=== PATIENT | male | born 1965 | race Caucasian/White ===

== ENCOUNTER 2018-11-01 10:45 | Inpatient (IN) ==
--- NOTE | 2018-11-01 09:55 | Cardiology Consultation ---
Date of Consultation November 01, 2018 Assessment & Plan (1) Abnormal stress echo: Patient with symptoms of increasing angina pectoris though with atypical features right-sided chest and arm. Stress testing today significant for stress-induced ischemia possible two-vessel or greater at moderately low level workload's. Plan proceed with diagnostic cardiac catheterization after initial laboratory testing. Procedure and risk will be explained to the patient informed consent obtained. Further recommendations pending the results of testing (2) Atypical angina: (3) Hyperlipidemia: Will warrant lipid-lowering therapy after above History of Present Illness Reason for Consultation: Exertional angina, abnormal stress test Requesting Physician: Dr. Henriquez Attending Physician: Refugio Henriquez, DO History of Present Illness Patient is a 53-year-old male without prior documented cardiac disease with cardiac risk factors of family history of heart disease hyperlipidemia and chronic tobacco use is been experiencing symptoms of right-sided chest pain and right arm pain for approximately 6 months. Symptoms have however recently become more symptomatic especially with exertion and patient was referred today for exercise treadmill with echocardiographic imaging. With study patient exercised for 6 minutes on a Abdirashid protocol with developing symptoms of chest pressure and tightness at peak workload. Moderate dyspnea was exact extubated. EKG response was abnormal with 2 to [address] depression in inferolateral leads. Echocardiogram at rest on preliminary review revealed very subtle hypokinesis inferior base with preserved LV systolic function with stress to her stress-induced wall motion abnormalities involving the inferior posterior and apical wall segments. In light of findings patient's referred for diagnostic cardiac catheterization. He denies history rheumatic fever scarlet fever renal or hepatic disease. Notes no prior history of angina congestive heart failure TIA or stroke. Appetite and weight have been stable. Smokes 1/2 pack of cigarettes per day. No bleeding issues dark black stools blood in the stools. Allergies Allergy/AdvReac Type Severity Reaction Status Date / Time No Known Allergies Allergy Unverified 10/29/17 16:20 Home Medications Home Medications Medication Instructions Recorded Confirmed Type CHOLECALCIFEROL (VITAMIN D3) 1,000 unit PO DAILY 90 Days #0 tab 10/29/17 History Patient History Surgical History History of inguinal herniorrhaphy Family History Father Coronary heart disease Social History Smoking Status: Current every day smoker Tobacco Type: cigarettes packs per day: 0.5 Hx Alcohol Use: Yes (Occasional) Review of Systems Review of Systems: All systems reviewed & are unremarkable except as noted in HPI & below Physical Exam Constitutional: Thin in no acute distress Eyes: PERRL, conjunctivae normal, anicteric sclerae ENMT: external ear and nose normal, oropharynx normal Mouth: + dentition abnormality (Poor dentition) Neck: trachea midline, no thyromegaly Respiratory: normal respiratory effort, lungs clear to auscultation Cardiovascular: Rate/Rhythm: regular rate and regular rhythm Heart Sounds: normal S1 and normal S2; no gallop and no murmur Palpation: normal PMI Vessels: normal carotid upstroke and radial pulses present; no JVD and no carotid bruit Extremities: no edema Gastrointestinal (Abdomen): normal bowel sounds, soft, nontender, no hepatosplenomegaly Musculoskeletal: no cyanosis or clubbing, extremities motor strength 5/5 Skin: no rashes, warm and dry Neurologic: PERRL, EOMI, accommodation nl, no face palsy, no dysarthria Psychiatric: A+Ox3, euthymic affect
[2018-11-01 10:35] LABS: Hematocrit (blood only) 47.5 % (42-52); Hemoglobin 16.7 g/dL (14.0-18.0); Mean Corpuscular Hgb Conc 35.2 g/dL (32-36); Mean Corpuscular Volume 90.1 fL (80-100); Mean Platelet Volume 9.2 fL (7.4-10.4); Platelet Count 256 K/uL (130-400); RDW Coefficient of Variation 12.8 % (11.5-14.5); RDW Standard Deviation 42.1 fL (36.4-46.3); Red Blood Count 5.27 M/uL (4.7-6.1)
[~2018-11-01 10:45] MED LIST: SODIUM CHLORIDE 0.9% 1000ML 1,000 ML IV SCH
[2018-11-01 10:47] LABS: Partial Thromboplastin Ratio 1.1; Partial Thromboplastin Time 30.6 Seconds (21.0-31.0); Prothrombin Time 10.2 Seconds (9.0-12.0)
[2018-11-01 10:56] LABS: BUN Creatinine Ratio 9.2 (10-20); Calcium 9.6 mg/dl (8.5-10.1); Creatinine Clr Calc Pharmacy 78.1 ml/min; Est GFR (Non-African American) 85.4; Potassium 4.2 mmol/L (3.5-5.1)
[2018-11-01] MEDS ORDERED: ASPIRIN 81 MG CHEW ONE (11:48)
[2018-11-01] MEDS ORDERED: HEPARIN (PORCINE) 1000 UNIT/ML 10 ML (CATH LAB USE ONLY) ONE (12:09)
[2018-11-01] MEDS ORDERED: fentaNYL citrate 100 MCG/2 ML VIAL ONE ×2 (12:09→14:22)
[2018-11-01] MEDS ORDERED: NITROGLYCERIN/D5W 100MCG/ML 20ML SYR ONE (12:09)
[2018-11-01] MEDS ORDERED: NiCARDipine HCL INJ 2.5 MG/ML 10 ML AMP ONE (12:09)
[2018-11-01] MEDS ORDERED: MIDAZOLAM HCL 1 MG/ML 2ML VIAL ONE ×2 (12:09→14:22)
--- NOTE | 2018-11-01 13:18 | Pre Anesthesia Assessment ---
Date of Service November 01, 2018 Pre Sedation Assessment Vital Signs Temp Pulse Pulse Pulse Resp BP Pulse Ox 11/02/18 08:10 56 L 11/02/18 07:06 36.8 C 56 L 17 131/81 99 11/02/18 04:00 36.5 C 56 L 17 109/70 98 11/01/18 23:52 36.6 C 53 L 17 122/76 99 11/01/18 22:20 63 11/01/18 19:06 36.4 C L 61 16 115/72 98 11/01/18 18:29 61 118/78 11/01/18 17:44 60 120/80 11/01/18 17:29 64 132/87 11/01/18 16:59 36.5 C 56 L 19 153/84 H 98 11/01/18 16:29 36.6 C 54 L 20 137/87 99 11/01/18 16:14 36.6 C 70 19 128/81 99 11/01/18 11:00 36.3 C L 66 16 104/52 L 98 Cardiovascular RRR, no murmur, no edema Respiratory normal respiratory effort, lungs clear to auscultation Pre-Sedation Airway Assessment Smoking Status: Current every day smoker ASA: ASA4 Notes The planned sedation has been discussed with the patient. Informed Consent was obtained. I have identified the patient, determined the appropriateness of sedation and have assessed the patient immediately prior to the procedure. All medicine(s) and interventions are by my order.
--- NOTE | 2018-11-01 14:27 | Post Anesthesia Assessment ---
Date of Service November 01, 2018 Post Sedation Assessment Vital Signs Temp Pulse Pulse Pulse Resp BP Pulse Ox 11/02/18 08:10 56 L 11/02/18 07:06 36.8 C 56 L 17 131/81 99 11/02/18 04:00 36.5 C 56 L 17 109/70 98 11/01/18 23:52 36.6 C 53 L 17 122/76 99 11/01/18 22:20 63 11/01/18 19:06 36.4 C L 61 16 115/72 98 11/01/18 18:29 61 118/78 11/01/18 17:44 60 120/80 11/01/18 17:29 64 132/87 11/01/18 16:59 36.5 C 56 L 19 153/84 H 98 11/01/18 16:29 36.6 C 54 L 20 137/87 99 11/01/18 16:14 36.6 C 70 19 128/81 99 11/01/18 11:00 36.3 C L 66 16 104/52 L 98 Recovery Score Activity: Moves 4 extremities Respiration: Deep Breath/Cough Circulation: +/-20% PreAnes Value Consciousness: Fully Awake Oxygen Saturation: > 92% On Room Air Post Sedation Plan On clinical assessment, the patient appears to have tolerated the sedation without complications. Patient is recovering as anticipated. Patient will continue to be monitored by nursing and may be discharged when sedation discharge criteria are met per below protocol. Upon Completions of procedure and additional 15 minutes continue every 5 minute vital signs and the P.A.R. score; then discharge to a Phase I or Fast Track to Phase II per the following guidelines: * Discharge Patient to appropriate Phase II area if PAR is 8 or greater or return to pre- procedure baseline. The post - procedure orders will be as directed. * If PAR score is less than 8 or not return to pre-procedure baseline then patient will follow Phase I monitoring till PAR is reached for Phase II. The Phase I may be done in procedure room or may call to secure a Phase I area. * If naloxone or flumazenil are used for reversal, hold in Phase I for continued monitoring from when last reversal dose was given for a minimum of 60 minutes or longer pending the nurse and/or physician discretion of patient condition before discharge to Phase II. Please call the Sedation Physician to re-evaluate and complete post-note for discharge to Phase II area. Do NOT discharge from procedure sedation or Phase 1 until post- sedation evaluation note is complete by procedure /sedation MD Sedation Discharge Instructions to be given to the patient at discharge to home.
--- NOTE | 2018-11-01 14:29 | Cardiac Catheterization ---
Cardiac Cath Procedure Full Procedure Date November 01, 2018 Pre-Procedure Diagnosis Pre-Procedure Diagnosis: Angina and Positive Stress Test AUC Score AUC Score: 8 Post-Procedure Diagnosis Post-Procedure Diagnosis: Severe CAD Procedure(s) Performed Procedure(s) Performed: Coronary Angiography and Left Heart Cath Gelatin Powder Mixer Jose J Hernandez DO Rn Documentation(s) Vianca RTR Estimated Blood Loss Estimated Blood Loss: 5cc Medication(s) Medication(s): Fentanyl, Heparin, Lidocaine 1%, Nicardipine, Nitroglycerin and Versed Summary of Findings 100% ostial LAD 85% distal RCA Hemodynamics Rest Ao:: 107/63/83 Final Ao: 128/68/97 LV: 109/3/7 Recommendations Recommendations: PCI without planned CABG (Case discussed with CT surgeon, Dr. Stewart who recommends PCI of the RCA due to small caliber of the LAD which she does not believe would be an adequate surgical target.) Specimens Specimens: None Radiation Exposure (mGy) 1026 Contrast (mls) 65 Fluids (cc crystalloids) Fluids (cc crystalloids): 84cc Anesthesia Moderate sedation. Start 1319. End 1348. Sedation monitor: Marky SALCIDO Procedural Complication(s) None Disposition Patient remained in Accounts Payable Accountant for PCI of RCA. ACC Data: Accounts Payable Accountant Cardiac Status Clinical evaluation leading to the procedure CAD Presenation: Positive Stress Test and Unstable angina Anginal Classification: CCS II Heart Failure: No Coronary Anatomy Dominant: Right Left Main (% Stenosis): Ostial (Small left main coronary artery (same diameter as Lcx) giving rise to the left circumflex. 30% ostial taper.) and Distal (Moderate calcification, 30%) LAD (% Stenosis): Ostial (100%) and Distal (Apical segments fill via right to left collaterals.) OM1 (% Stenosis): Ostial (10%) OM2 (% Stenosis): Proximal (Mild luminal irregularities, 10%) RCA (% Stenosis): Proximal (50%), Mid (Diffusely diseased mid segment with stenosis range 20 to 50%.) and Distal (84%) R PDA (% Stenosis): Ostial (30%^) R PL1 (% Stenosis): Proximal (20%, competitive flow noted via left to right collaterals) AM (% Stenosis): Ostial (50%) and Proximal (60%) Diagnostic Physicians Name: Jose J Hernandez DO Status: Urgent Closure Device Percutaneous Entry Location: Radial Closure Device: Radial Band Recommendations: PCI without planned CABG (Case discussed with CT surgeon, Dr. Stewart who recommends PCI of the RCA due to small caliber of the LAD which she does not believe would be an adequate surgical target.) Intraprocedure Events Significant Disection: No Perforation: No
[2018-11-01] MEDS ORDERED: CLOPIDOGREL BISULFATE 300 MG TAB ONE (15:25)
--- NOTE | 2018-11-01 15:34 | Post Anesthesia Assessment ---
Date of Service November 01, 2018 Post Sedation Assessment Vital Signs Temp Pulse Resp BP Pulse Ox 11/01/18 11:00 36.3 C L 66 16 104/52 L 98 Recovery Score Activity: Moves 4 extremities Respiration: Deep Breath/Cough Circulation: +/-20% PreAnes Value Consciousness: Fully Awake Oxygen Saturation: > 92% On Room Air Discharge Sedation Level of Care: Fast Track Phase II Post Sedation Plan On clinical assessment, the patient appears to have tolerated the sedation without complications. Patient is recovering as anticipated. Patient will continue to be monitored by nursing and may be discharged when sedation discharge criteria are met per below protocol. Upon Completions of procedure and additional 15 minutes continue every 5 minute vital signs and the P.A.R. score; then discharge to a Phase [facility] or [facility] per the following guidelines: * Discharge Patient to appropriate Phase II area if PAR is 8 or greater or return to pre- procedure baseline. The post - procedure orders will be as directed. * If PAR score is less than 8 or not return to pre-procedure baseline then patient will follow Phase I monitoring till PAR is reached for Phase II. The Phase I may be done in procedure room or may call to secure a Phase I area. * If naloxone or flumazenil are used for reversal, hold in Phase I for continued monitoring from when last reversal dose was given for a minimum of 60 minutes or longer pending the nurse and/or physician discretion of patient condition before discharge to Phase II. Please call the Sedation Physician to re-evaluate and complete post-note for discharge to Phase II area. Do NOT discharge from procedure sedation or Phase 1 until post- sedation evaluation note is complete by procedure /sedation MD Sedation Discharge Instructions to be given to the patient at discharge to home.
[2018-11-01] MEDS ORDERED: ACETAMINOPHEN 325 MG TAB PO PRN (15:44)
--- NOTE | 2018-11-01 15:44 | Cardiac Catheterization ---
Cardiac Cath Procedure Full Procedure Date November 01, 2018 Pre-Procedure Diagnosis Pre-Procedure Diagnosis: Angina and Positive Stress Test AUC Score AUC Score: 8 Post-Procedure Diagnosis Post-Procedure Diagnosis: Severe CAD and Successful PCI Procedure(s) Performed Procedure(s) Performed: Coronary Angiography and Drug Eluting Stent Environmental Emergencies Planner Isauro Negrete MD Lcpc(s) Vianca RTR Estimated Blood Loss Estimated Blood Loss: 5cc Medication(s) Medication(s): Clopidogrel, Fentanyl, Heparin, Nicardipine, Nitroglycerin and Versed Summary of Findings Indication: High risk stress test Access: 6 Fr right radial artery Catheters: AR-1 guide Findings: For full details of patient's coronary angiography please cath report dictated by Dr. Hernandez. Briefly, patient found to have severe multi-vessel disease including an occluded ostial LAD which filled via right to left collaterals and RCA with diffuse moderate to severe mid segment disease and an 80 to 90% focal distal lesion. After Dr. Hernandez discussed case with [facility] cardiac surgery decision to proceed with PCI to RCA. -- PCI -- Antithrombotic therapy: Heparin, clopidogrel Procedure: RCA cannulated with AR-1 guide Iuss Acoustic Analyst 50 wire passed across lesion into distal vessel Distal RCA lesion predilated with 2.5 compliant balloon Dilated lesion stented with 2.5 x 30 mm Ishmael drug-eluting stent Stent post-dilated with 2.75 noncompliant balloon Mid RCA stented with 3.0 x 30 mm Ishmael drug-eluting stent Stent postdilated with 3.25 NC balloon IC vasodilators administered for spasm Post procedure LISE 3 flow, stents well expanded with minimal residual stenosis and no apparent cardiac complications. Good collaterals to LAD. Competitive flow no longer seen in right PLB. Arterial Closure: TR band Summary: 1. Successful PCI of distal RCA with single drug-eluting stent (2.5 x 30 mm Viking; postdilated with 2.75 NC). 2. Successful PCI of mid RCA with single drug-eluting stent (3.0 x 30 mm Viking; postdilated with 3.25 NC). Recommendations: To PCU for continued monitoring Loaded with clopidogrel 600 mg in slab depiler operator Continue dual-antiplatelet therapy for at least 6 months Continue statin, and ASCVD risk factor modification Consult cardiac Rehab Hemodynamics Rest Ao:: 123/65/89 Final Ao: 133/71/95 LV: -- Recommendations Recommendations: PCI without planned CABG Specimens Specimens: None Radiation Exposure (mGy) 3190 Contrast (mls) 165 Fluids (cc crystalloids) Fluids (cc crystalloids): 165 Drains Drains: none Anesthesia moderate Procedural Complication(s) None Disposition PCU ACC Data: Showroom Consultant Cardiac Status Clinical evaluation leading to the procedure CAD Presenation: Positive Stress Test Anginal Classification: CCS III Heart Failure: No Cardiogenic Shock within 24 Hours: No Cardiac Arrest within 24 Hours: No Imaging Studies Past 6 Months: Yes Stress Studies Past 6 Months: Yes Stress Echocardiogram: Yes - Positive and Risk/Extent of Ischemia (High) Diagnostic Physicians Name: Isauro Negrete MD Closure Device Percutaneous Entry Location: Radial Closure Device: Radial Band Recommendations: PCI without planned CABG PCI Indication: + Stress Test Lesion Segment Name: RCA Culprit Artery: Yes Stenosis Prior to Rx (%): 90 Chronic Total Occlusion: No IVUS: No FFR: No Pre-Procedure LISE Flow: 2 Previously Treated Lesion: No Lesion Complexity: Non-High/Non-C Lesion Length (mm): 30 Thrombus Present: No Bifurcation Lesion: No Guidewire Across Lesion: Stenosis Post-Procedure (%): 0 Post-Procedure LISE Flow: 3 Devices(s) Deployed: Yes Yes Intraprocedure Events Significant Disection: No Perforation: No
[2018-11-01] MEDS ORDERED: SODIUM CHLORIDE 0.9% 1000ML 1,000 ML IV SCH (16:30)
[2018-11-02 07:03] LABS: Basophils # (auto) 0.06 K/uL (0-0.2); Basophils % (auto) 0.8 %; Eosinophils % (auto) 2.7 %; Hematocrit (blood only) 41.5 % (42-52); Hemoglobin 14.4 g/dL (14.0-18.0); Immature Granulocytes # (auto) 0.01 K/uL (0.00-0.02); Immature Granulocytes % (auto) 0.1 %; Lymphocytes # (auto) 2.36 K/uL (1.2-3.4); Lymphocytes % (auto) 31.7 %; Mean Corpuscular Hgb Conc 34.7 g/dL (32-36); Mean Corpuscular Volume 88.5 fL (80-100); Mean Platelet Volume 9.3 fL (7.4-10.4); Monocytes # (auto) 0.71 K/uL (0.11-0.59); Monocytes % (auto) 9.5 %; Neutrophils # (auto) 4.11 K/uL (1.4-6.5); Neutrophils % (auto) 55.2 %; Platelet Count 223 K/uL (130-400); RDW Coefficient of Variation 12.9 % (11.5-14.5); RDW Standard Deviation 41.3 fL (36.4-46.3); Red Blood Count 4.69 M/uL (4.7-6.1); White Blood Count 7.45 K/uL (4.8-10.8)
[2018-11-02 07:32] LABS: BUN Creatinine Ratio 10.4 (10-20); Calcium 8.7 mg/dl (8.5-10.1); Creatinine Clr Calc Pharmacy 98.8 ml/min; Est GFR (African American) 117.8; Est GFR (Non-African American) 101.6; Potassium 3.7 mmol/L (3.5-5.1)
[2018-11-02] MEDS ORDERED: CLOPIDOGREL BISULFATE 75 MG TAB PO SCH (09:00)
[2018-11-02] MEDS ORDERED: ASPIRIN 81 MG ECTAB PO SCH (09:00)
[2018-11-02] MEDS ORDERED: ATORVASTATIN 40 MG TAB PO SCH (09:00)
[2018-11-02] MEDS ORDERED: NITROGLYCERIN SL 0.4 MG/TAB TAB SL PRN (10:15)
--- NOTE | 2018-11-02 10:23 | Cardiology Progress Note ---
Date of Service November 02, 2018 Assessment & Plan (1) Abnormal stress echo: (2) CAD (coronary artery disease), [place] coronary artery: (3) S/P right coronary artery (RCA) stent placement: (4) Tobacco abuse: (5) Hyperlipidemia: Cardiac catheterization performed 11/01/2018 demonstrated multivessel coronary disease with severe distal RCA stenosis, and chronic total occlusion of proximal LAD. Left main caliber small however same diameter as circumflex artery. Case discussed with cardiothoracic surgery as well as interventional cardiology. Decision was made to proceed with percutaneous intervention of the right coronary artery which gives rise to right to left collaterals. Smoking cessation advised. Continue dual antiplatelet therapy for minimum of 6 months post percutaneous intervention. Beta-torsten and high intensity statin therapy added during hospitalization. Patient provided with prescription for sublingual nitroglycerin and instructed regarding appropriate use. Instructed to avoid strenuous activity. Lifting restriction of less than 50 pounds until cardiology follow-up. Outpatient cardiology follow-up in 2 weeks. Subjective Patient seen and examined at the bedside. is present. Patient denies chest pain or shortness of breath. No orthopnea, PND, or lower extremity edema. No wrist ecchymosis or hematoma. Patient has questions regarding work restrictions. 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 Drives up to 250 miles per day. Unfortunately, patient's father 2 days ago. He is anxious for discharge to attend his father's services. Patient offers no other concerns/complaints at this time. Review of Systems Review of Systems: All systems reviewed & are unremarkable except as noted in HPI & below Physical Exam Physical Exam: General: NAD, AAO x3, well nourished. Appears older than stated age. HEENT: Normocephalic. Atraumatic. Conjunctiva pink, no scleral icterus. Neck: No carotid bruits, the carotid upstrokes are brisk. No JVD. No HJR Heart: Regular normal S-1 and S-2 no S-3 or S-4 gallop. No murmurs or rub appreciated. PMI is not displaced. No RV heave. Lungs: Clear bilateral without rales , rhonchi, or wheeze. Abdomen: Normal bowel sounds. Soft. Nontender. No masses or organomegaly. No abdominal bruits. Extremities: No clubbing, cyanosis, or edema. Pulses: radial=2/4, Dorsalis pedis =2/4, posterior tibial=2/4. Neuro: Cranial nerves grossly intact. No focal motor deficit. Results & Data Vital Signs (Past 12 Hours) Vital Signs Temp Pulse Pulse Resp BP Pulse Ox 11/02/18 08:10 56 L 11/02/18 07:06 36.8 C 56 L 17 131/81 99 11/02/18 04:00 36.5 C 56 L 17 109/70 98 11/01/18 23:52 36.6 C 53 L 17 122/76 99 11/01/18 22:20 63 Laboratory Results Laboratory Results - last 24 hr 11/01/18 11/01/18 11/01/18 10:20 10:20 10:20 WBC 6.10 RBC 5.27 Hgb 16.7 Hct 47.5 MCV 90.1 MCH 31.7 MCHC 35.2 RDW Std Deviation 42.1 RDW Coeff of Anika 12.8 Plt Count 256 MPV 9.2 Immature Gran % (Auto) Neut % (Auto) Lymph % (Auto) Russell % (Auto) Eos % (Auto) Baso % (Auto) Immature Gran # (Auto) Neut # (Auto) Lymph # (Auto) Russell # (Auto) Eos # (Auto) Baso # (Auto) PT 10.2 INR 1.0 APTT 30.6 PTT Ratio 1.1 Activ Coag Time Kaolin Sodium 142 Potassium 4.2 Chloride 108 H Carbon Dioxide 28 Anion Gap 6.0 BUN 9 Creatinine 0.99 Est Cr Clr Drug Dosing 78.1 Est GFR ( Amer) 99.0 Est GFR (Non-Af Amer) 85.4 BUN/Creatinine Ratio 9.2 L Glucose 96 Calcium 9.6 Hepatitis C Ab Screen 11/01/18 11/01/18 11/01/18 10:20 14:39 14:59 WBC RBC Hgb Hct MCV MCH MCHC RDW Std Deviation RDW Coeff of Anika Plt Count MPV Immature Gran % (Auto) Neut % (Auto) Lymph % (Auto) Russell % (Auto) Eos % (Auto) Baso % (Auto) Immature Gran # (Auto) Neut # (Auto) Lymph # (Auto) Russell # (Auto) Eos # (Auto) Baso # (Auto) PT INR APTT PTT Ratio Activ Coag Time Kaolin 230 H 323 H Sodium Potassium Chloride Carbon Dioxide Anion Gap BUN Creatinine Est Cr Clr Drug Dosing Est GFR ( Amer) Est GFR (Non-Af Amer) BUN/Creatinine Ratio Glucose Calcium Hepatitis C Ab Screen Neg 11/02/18 11/02/18 06:14 06:14 WBC 7.45 RBC 4.69 L Hgb 14.4 Hct 41.5 L MCV 88.5 MCH 30.7 MCHC 34.7 RDW Std Deviation 41.3 RDW Coeff of Anika 12.9 Plt Count 223 MPV 9.3 Immature Gran % (Auto) 0.1 Neut % (Auto) 55.2 Lymph % (Auto) 31.7 Russell % (Auto) 9.5 Eos % (Auto) 2.7 Baso % (Auto) 0.8 Immature Gran # (Auto) 0.01 Neut # (Auto) 4.11 Lymph # (Auto) 2.36 Russell # (Auto) 0.71 H Eos # (Auto) 0.20 Baso # (Auto) 0.06 PT INR APTT PTT Ratio Activ Coag Time Kaolin Sodium 139 Potassium 3.7 Chloride 108 H Carbon Dioxide 26 Anion Gap 5.0 BUN 8 Creatinine 0.78 Est Cr Clr Drug Dosing 98.8 Est GFR ( Amer) 117.8 Est GFR (Non-Af Amer) 101.6 BUN/Creatinine Ratio 10.4 Glucose 93 Calcium 8.7 Hepatitis C Ab Screen (1) Hyperlipidemia Hyperlipidemia type: other hyperlipidemia Qualified Code(s): E78.49 - Other hyperlipidemia; E78.4 - Other hyperlipidemia (2) CAD (coronary artery disease), [place] coronary artery Associated angina: with stable angina [place] vs. transplanted heart: [place] heart Qualified Code(s): I25.118 - Atherosclerotic heart disease of [place] coronary artery with other forms of angina pectoris
[2018-11-02] MEDS ORDERED: METOPROLOL SUCC 25MG EXT REL TAB PO SCH (10:30)
--- NOTE | 2018-11-02 10:55 | Discharge Summary ---
Date of Service November 02, 2018 Admission HPI Per Admitting Provider Patient underwent elective outpatient exercise stress echocardiography 11/01/2018. Anginal symptoms develop at low level of exercise with ischemic ECG changes and exercise-induced regional wall motion abnormalities on ec hocardiogram suggestive of ischemia. Patient admitted under observation status for cardiac catheterization. Admission Exam Per Admitting Provider General: NAD, AAO x3, well nourished. HEENT: Normocephalic. Atraumatic. Conjunctiva pink, no scleral icterus. Neck: No carotid bruits, the carotid upstrokes are brisk. No JVD. No HJR Heart: Regular normal S-1 and S-2 no S-3 or S-4 gallop. No murmurs or rub appreciated. PMI is not displaced. No RV heave. Lungs: Clear bilateral without rales , rhonchi, or wheeze. Abdomen: Normal bowel sounds. Soft. Nontender. No masses or organomegaly. No abdominal bruits. Extremities: No clubbing, cyanosis, or edema. Pulses: radial=2/4, Dorsalis pedis =2/4, posterior tibial=2/4. Neuro: Cranial nerves grossly intact. No focal motor deficit. Principal Diagnosis Multivessel coronary artery disease status post percutaneous intervention with drug-eluting stent implantation x2 to the right coronary artery. Discharge Data Allergies Allergy/AdvReac Type Severity Reaction Status Date / Time No Known Allergies Allergy Unverified 10/29/17 16:20 Consultations 11/01/18 15:46 Consult Cardiac Rehabilitation Routine Procedures Performed Operation Date: 11/01/18 11:00 <No data on this case meets the specified criteria> Operation Date: 11/01/18 11:00 Actual Procedures p Cath, Left with Cors and Vent(Left) - Jose J Hernandez DO s Cineradiography w/Routine Exam(Left) - DO mona Eason POBA SGL Vessel - Philip Negrete MD s Drug Eluting Stent SGl Vessel - Philip Negrete MD Ordered Studies 11/01/18 11:58 CL Cath Imgs for PACS use only Routine Hospital Course (1) Abnormal stress echo: (2) CAD (coronary artery disease), [place] coronary artery: (3) S/P right coronary artery (RCA) stent placement: (4) Tobacco abuse: (5) Hyperlipidemia: Cardiac catheterization performed 11/01/2018 demonstrated multivessel coronary disease with severe distal RCA stenosis, and chronic total occlusion of proximal LAD. Left main caliber small however same diameter as circumflex artery. Case discussed with cardiothoracic surgery as well as interventional cardiology. Decision was made to proceed with percutaneous intervention of the right coronary artery which gives rise to right to left collaterals. Smoking cessation advised. Continue dual antiplatelet therapy for minimum of 6 months post percutaneous intervention. Beta-torsten and high intensity statin therapy added during hospitalization. Patient provided with prescription for sublingual nitroglycerin and instructed regarding appropriate use. Instructed to avoid strenuous activity. Lifting restriction of less than 50 pounds until cardiology follow-up. Outpatient cardiology follow-up in 2 weeks. Total Time Total Time Spent Total Time Spent (In Minutes): 35 Total Time Includes: Examination of the Patient, Discharge Planning, Medication Reconciliation and Communication With Other Providers Discharge Plan Discharge Items Patient Disposition: Home - Self-Care Reason For Visit: PCI Discharge Diagnosis: Abnormal stress echo status post cardiac catheterization demonstrating multivessel coronary disease. Status post drug-eluting stent implantation to the right coronary artery Discharge Goals: Improve disease control Activity: Per 'Additional Instructions' section Lifting: No more than 50 pounds Sexual Activity: Wait until after follow-up appointment Non-emergency contact: Primary Care Provider and Dental Assisting Instructor Call non-emergency contact if: you have any medication questions, your pain is worsening and your pain is unusual for you Follow-up/Referrals: Rocco Junior M.D. [Primary Care Provider] - Diet: Heart Healthy Add Provider Instructions: ACTIVITY RECOMMENDATIONS: It is common to feel weak and fatigue for a few days. * Do not drive or operate any motorized equipment for the next three days. * Limit stair usage (2 or 3 trips a day only) for the next three days. * Do not lift anything heavier than 10 pounds for the next three days. * Do not engage in vigorous exercise or any sports for the next five days. * You may shower the day after your procedure, but do not immerse the area for three days. Cleanse the site gently with soap and water. SPECIAL CARE INSTRUCTIONS: * You may replace the pressure dressing or band-aid the morning after the procedure. * After your procedure, it is normal to have a small bruise or small lump at the site. Examine your site daily for any change in the bruise or lump, redness, swelling, drainage or numbness. Notify your doctor if any change. BLEEDING: * If there is a small amount of bleeding at the site, lie down and apply firm pressure with a clean cloth for ten minutes. When the bleeding stops, lie quietly keeping the procedure limb straight for six hours. Notify your doctor as soon as possible. * If the bleeding does not stop after ten minutes or if there is a large amount of bleeding or spurting, call 911 immediately. Continue to lie down and hold firm pressure until help arrives. SKIN IRRITATION: * You may experience some redness and/or swelling in the area where radiation was administered. If any skin irritation occurs, please contact your family physician. FOLLOW UP VISIT: Follow-up with primary care physician in 1 week. Follow-up with cardiology in 2 weeks. Return to work: Patient may return to work 11/07/18. Lifting restriction of less than 50 pounds recommended. Prescriptions: New atorvastatin 40 mg Tablet 80 mg PO QAM Qty: 34 RF: 4 clopidogrel 75 mg Tablet 75 mg PO QAM Qty: 34 RF: 6 aspirin [Ecotrin Low Strength] 81 mg Tablet,Delayed Release (Dr/Ec) 81 mg PO QAM Qty: 34 RF: 0 metoprolol succinate 25 mg Tablet Extended Release 24 Hr 25 mg PO QAM Qty: 34 RF: 4 nitroglycerin 0.4 mg tablet, sublingual 0.4 mg sublingual .prn Qty: 20 RF: 4 Continued CHOLECALCIFEROL (VITAMIN D3) 1,000 UNIT tablet 1,000 unit PO DAILY 90 Days Qty: 0 RF: 3 Visit Report Forms: Smoking Cessation Stand-Alone Forms: [facility] Discharge Orders: Discharge Order (Routine); Ordered 11/02/18 Ordered By: Jose J Hernandez Admission Data Admit Date/Time: 11/01/18 15:13 Attending Provider: Jose J Hernandez Admit Provider: Jose J Hernandez Primary Care Provider: Rocco Junior Service: Telemetry Other Pending Studies at Discharge: No
== END 2018-11-02 11:38 | disposition home or self-care (01) | DRG 247 ==
LOC: CC 10:45 → 2S 15:13
DX: E78.5 Hyperlipidemia, unspecified; I25.10 Atherosclerotic heart disease of native coronary artery without angina pectoris; Z82.49 Family history of ischemic heart disease and other diseases of the circulatory system; F17.210 Nicotine dependence, cigarettes, uncomplicated